=== PATIENT | male | born 1980 | race Caucasian/White ===

== ENCOUNTER → 2020-02-06 08:40 | Outpatient (CLI) | payer OTHER, SELFPAY ==
--- NOTE | 2020-02-06 08:42 | DI.MRI.S_ITS ---
PROCEDURE: MR SHOULDER LT WO CON INDICATIONS: Injury L shoulder TECHNIQUE: Noncontrast oblique coronal T2 fast spin echo with fat saturation, oblique sagittal T1 spin echo and T2 fast spin echo with fat saturation, axial T1 spin echo and T2 fast spin echo with fat saturation through the shoulder. COMPARISON: None. FINDINGS: Image quality: Excellent. Rotator cuff: There is high-grade partial thickness tear of the supraspinatus tendon along the articular surface. The infraspinatus and subscapularis tendons appear intact throughout. Sagittal images demonstrate no supraspinous muscle muscle atrophy. Bones and bursae: No bone marrow contusions or fractures. There is mtyb-[id number]-[id number] acromioclavicular joint degeneration. The acromion demonstrates conventional anatomy, without an os acromiale. There is subcoracoid bursal fluid consistent with bursitis. Capsule and soft tissues: In the absence of intra-articular contrast, the labrum and glenohumeral ligaments appear intact. The long head of the biceps tendon demonstrates normal location and morphology. The rotator interval appears normal, without fibrosis. The coracohumeral ligament is normal in thickness. IMPRESSION: 1. High-grade partial thickness tear of the supraspinatus tendon. 2. Zoql-qx-ikwxfphn acromioclavicular joint degeneration. 3. Subcoracoid bursal fluid consistent with bursitis. Dictated by: Holly Dick M.D. on 02/08/2020 at 10:41 Approved by: Holly Dick M.D. on 02/08/2020 at 11:24
== END ==
PROVIDERS: PCP Student in an Organized Health Care Education/Training Program; Referring Provider Student in an Organized Health Care Education/Training Program; Visit Provider Student in an Organized Health Care Education/Training Program
DX: S46.012A Strain of muscle(s) and tendon(s) of the rotator cuff of left shoulder, initial encounter (principal); M19.012 Primary osteoarthritis, left shoulder; X58.XXXA Exposure to other specified factors, initial encounter
CPT/HCPCS: 73221

== ENCOUNTER 2020-03-28 08:15 | Outpatient (RCR) | payer OTHER, SELFPAY ==
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
--- NOTE | 2020-02-29 18:01 | PT.OPPOC ---
Physical, Occupational & Speech Therapy At [facility] Current Diagnoses Primary osteoarthritis, unspecified shoulder (02/29/20) Cervicalgia (02/29/20) Unspecified rotator cuff tear or rupture of unspecified shoulder, not specified as traumatic (02/29/20) Bursitis of unspecified shoulder (02/29/20) Abnormal posture (02/29/20) Weakness (02/29/20) Visit Care Team Role Provider Type Harshad Gill MD Attending Provider Physician Primary Care Provider Referring Provider Specialty: Internal Medicine Address: [address] [place] [address], [address], [facility] Email: [email or web address] Plan Of Care PT-OP-T Assessment and Plan Start: 02/25/20 17:53 Freq: Status: Active Protocol: Document 02/29/20 08:13 [facility] (Rec: 02/29/20 10:42 [facility] [id number]) Physical Therapy Assessment Rehab Potential Rehabilitation Potential Good Evaluation Complexity Number of Personal Factors/Comorbidities 3 or More Number of Body Systems Impaired 4 or More Clinical Presentation at Evaluation Evolving Impairments Impairments Activity Tolerance,Functional Activities,Functional Mobility ,Pain,Posture,ROM,Soft Tissue Mobility,Strength Goals activities Short Term Goal (STG) Pt will be able to lift with good mechanics without cueing STG Duration 03/31/20 Heater Planer Operator Goal (LTG) Pt will be able to mountain bike, do paddle sports and play with kids without inc pain or change in ability to move UE. LTG Duration 04/30/20 ROM Heater Planer Operator Goal (LTG) Pt will improve cervical ROM 10 deg in all motions and not cause pain into shoulder tod ec pain when pt performs cervical mobility. LTG Duration 04/30/20 strength Short Term Goal (STG) Pt will be indep with HEP and be able to start gentle strengthening without inc pain STG Duration 03/31/20 Half-Way Goal (LTG) Pt will have 5/5 UE strength B & EFT to show imrpoved shoulder stability to dec instances of pain. LTG Duration 04/30/20 Assessment Summary Assessment Pt presents with L>R shoulder pain with B shoulder pain radiating into elbows and neck pain which typically radiates to his L shoulder. He has imaging showing partial tear of supraspinatus, AC joint degeneration and subcoracoid bursitis, which is likely affected by his scapular mechanics and forward rounded posture. His pain likely stems from his L shoulder injury, but also from his neck as neck motions increase his L shoulder pain. Pt would benefit from skilled PT to address these deficits and return him to his full active lifestyle without pain. Physical Therapy Plan Frequency and Duration Frequency of Treatment 2x/Week Duration of Treatment 2 months Plan of Care Start Date 02/29/20 Plan of Care End Date 04/30/20 Therapeutic Interventions Therapeutic Interventions Aquatic Therapy,Balance Training,Gait Training,Home Exercise Program,Joint Mobilizations,Manual Therapy, Neuromuscular Re-education, Patient/Caregiver Education, Self-Care/Home Management,Soft Tissue Mobilization,Taping, Therapeutic Activities, Therapeutic Exercises Modalities Cold Pack/Ice Massage,Electric Stimulation,Hot Packs, Infrared Therapy,Traction- Mechanical,Ultrasound Next Visit Focus/Plan Next Note Type Treatment Note Next Visit Plan scap stability exercises, look at running form for UEs, work on stretches for after running, manual treatmetn to pecs & UT Plan of Care Dates Plan of Care Start Date 02/29/20 Plan of Care End Date 04/30/20 Electronically Signed by: Lashay Nieves, PT 02/29/20 [id number] Please Sign and Return: I have reviewed this Plan of Care and certify that the skilled therapy services above are required to meet the patient?s needs. Physician Signature Date Printed Name and Credentials Clinical Instructor Signature Printed Name and Credentials
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
--- NOTE | 2020-03-28 09:15 | PT.OTN ---
Current Diagnoses Primary osteoarthritis, unspecified shoulder (03/28/20) Cervicalgia (03/28/20) Unspecified rotator cuff tear or rupture of unspecified shoulder, not specified as traumatic (03/28/20) Bursitis of unspecified shoulder (03/28/20) Abnormal posture (03/28/20) Weakness (03/28/20) Physical Therapy Treatment Note PT-OP-A Visit Information Start: 02/25/20 17:53 Freq: Status: Active Protocol: Document 03/28/20 08:19 SP (Rec: 03/28/20 11:56 SP [id number]) Out-Patient Physical Therapy Visit Information Visit Information Visit Type Treatment Note Visit Start Time 08:19 Visit Stop Time 09:15 Total Visit Minutes 56 Visit Number 3 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 He did some PT but moved to [place] so did not do full course. He returned in 2014 and did PT in [place] for neck & L shoulder. He had dry needling which helped. Rerpots lotso f stress which likely contributes. Pt reports he has been doing a lot of shovelling & movign pavers recently. Pt went mtn biking about 1 month ago and could barely move arm. Pt was also SUPing and after he couldn't move arm. It takes a few days for the extreme pain to go away. He wants to be able to lift weights. he has only been running now. Pt has pain in B UT into shoulders and elbows. Pt reports L shoulder pain and L elbow pain happen together. Pt did flip over his bike also in 2011 which hurt his back mostly Prior Treatments and Tests copied from MRI: 1. High-grade partial thickness tear of the supraspinatus tendon. 2. Gyie-jr-qigkiozr acromioclavicular joint degeneration. 3. Subcoracoid bursal fluid consistent with bursitis. Treatment Goals Patient/Caregiver Goals wants to be active with kids, be able to do lifting and inc strength without pain Personal Factors Other Personal Factors That May Effect LBP, neck pain, B shoulder Therapy/Recovery pain, B elbow pain PT-OP-C Subjective Start: 02/25/20 17:53 Freq: Status: Active Protocol: Document 03/28/20 08:19 SP (Rec: 03/28/20 11:56 SP [id number]) OP-PT Subjective Patient Comments Patient Comments Pt reports no pain today but neck was tender past couple of days and still has pain during shoveling over primarily L>R shld, reaching L OH, tingy feeling anterior and lateral humerous to forearm including elbow since last tx, was building sand box for kids. PT-OP-F Manual Assessment Start: 02/25/20 17:53 Freq: Status: Active Protocol: Document 02/29/20 08:13 [facility] (Rec: 02/29/20 10:42 [facility] [id number]) Manual Assessments Soft Tissue Assessment Soft Tissue Mobility Assessment UT, LS, scalenes, pecs L>R Joint Mobility Assessment Joint Mobility Assessment L 1st rib elevated PT-OP-J Posture/Palpation/Skin Start: 02/25/20 17:53 Freq: Status: Active Protocol: Document 02/29/20 08:13 [facility] (Rec: 02/29/20 10:42 [facility] [id number]) Posture Evaluation [facility] Postural Classification System Debbi Postural Classifications Posterior/Anterior Elbow Flexion Test 2 PT-OP-K Range of Motion Start: 02/25/20 17:53 Freq: Status: Active Protocol: Document 02/29/20 08:13 [facility] (Rec: 02/29/20 10:42 [facility] [id number]) Cervical Spine Range of Motion Cervical Spine Active Degrees Flexion 45 Extension 56 Rotation Left 33 Rotation Right 35 Lateral Flexion Left 58 Lateral Flexion Right 56 Comments flex & ext create pain into L shoulder region Shoulder Goniometric Range of Motion Shoulder Left Active Flexion 162 Extension 55 External Rotation at 90 degrees 100 Abduction Internal Rotation Behind Back (text) T6 Right Active Flexion 158 Extension 66 Abduction 160 External Rotation at 90 degrees 100 Abduction Internal Rotation Behind Back (text) T6 Shoulder ROM Limitations Comments pain at end range PT-OP-L Special Tests Start: 02/25/20 17:53 Freq: Status: Active Protocol: Document 02/29/20 08:13 [facility] (Rec: 02/29/20 10:42 [facility] [id number]) Special Tests Cervical Spine Special Tests Vertebrobasilar Test Results neg Spurling's Test Test Results neg Alar Ligament Test Results neg Neural Special Tests- Upper Body Radial Nerve Tension Test Results neg B Median Nerve Tension Test Results neg B Ulnar Nerve Tension Test Results neg B PT-OP-M Strength Start: 02/25/20 17:53 Freq: Status: Active Protocol: Document 02/29/20 08:13 [facility] (Rec: 02/29/20 10:42 [facility] [id number]) Shoulder Strength Shoulder Manual Muscle Testing Right Flexion 5 Normal Extension 5 Normal Abduction (C5) 5 Normal External Rotation 4+ Good+ Internal Rotation 4+ Good+ Left Flexion 4+ Good+ Extension 4+ Good+ Abduction (C5) 4+ Good+ External Rotation 4- Good- Internal Rotation 4 Good PT-OP-Q Treatments Start: 02/25/20 17:53 Freq: Status: Active Protocol: Document 03/28/20 08:19 SP (Rec: 03/28/20 11:56 SP [id number]) Therapeutic Exercises Supine Exercises TS ext, rolling Reps/Minutes 4 min Sidelying Exercises roll & reach Side bilateral Reps/Minutes 10 Standing Exercises HABD Side bilateral Resistance TB 3 Reps/Minutes x10 Comments cued scap depression during eccentric to decrease winging row Side bilateral Equipment Used L3 Reps/Minutes 2x15 Comments focus on posture & scap motion wall posture Standing Exercise Name reassess next tx pec stretch Standing Exercise Name supine over foam roller today Manual Therapy Treatment Soft Tissue Mobilization L brachioradialis, Brachialis Body Location and CET Mobilization Type Cross-Friction,Instrument Assisted,Strumming Intensity/Depth Moderate Body Position Supine Comments Instructed instrument assisted Joint Mobilizations L GH Jt AP, inf glide Direction AP Grade II Body Position Hooklying PT-OP-T Assessment and Plan Start: 02/25/20 17:53 Freq: Status: Active Protocol: Document 03/28/20 08:19 SP (Rec: 03/28/20 11:56 SP [id number]) Physical Therapy Assessment Goals activities Short Term Goal (STG) Pt will be able to lift with good mechanics without cueing STG Duration 03/31/20 Brake Reliner Goal (LTG) Pt will be able to mountain bike, do paddle sports and play with kids without inc pain or change in ability to move UE. LTG Duration 04/30/20 ROM Halfway Goal (LTG) Pt will improve cervical ROM 10 deg in all motions and not cause pain into shoulder tod ec pain when pt performs cervical mobility. LTG Duration 04/30/20 strength Short Term Goal (STG) Pt will be indep with HEP and be able to start gentle strengthening without inc pain STG Duration 03/31/20 Brake Reliner Goal (LTG) Pt will have 5/5 UE strength B & EFT to show imrpoved shoulder stability to dec instances of pain. LTG Duration 04/30/20 Assessment Summary Assessment Pt reported L elbow discomfort today due to building sand box for child since last tx and improved post manual STMs. Reviewed HEP given since last tx, no appts available since then. Max cuing for scap retraction/depression during eccentric HABD and rows, continue next tx, utilized mirror for self feedback. Pt's goals is to get back into some sort of UE strengthening/ lifting program. Responded well to introduction to foam roller, has 1/4 one at home but might get full length like used today. Physical Therapy Plan Frequency and Duration Frequency of Treatment 2x/Week Duration of Treatment 2 months Plan of Care Start Date 02/29/20 Plan of Care End Date 04/30/20 Therapeutic Interventions Therapeutic Interventions Aquatic Therapy,Balance Training,Gait Training,Home Exercise Program,Joint Mobilizations,Manual Therapy, Neuromuscular Re-education, Patient/Caregiver Education, Self-Care/Home Management,Soft Tissue Mobilization,Taping, Therapeutic Activities, Therapeutic Exercises Modalities Cold Pack/Ice Massage,Electric Stimulation,Hot Packs, Infrared Therapy,Traction- Mechanical,Ultrasound Next Visit Focus/Plan Next Note Type Treatment Note Next Visit Plan Assess respone to last tx: manual CET L elbow/forearm and GH Jt, Continue per PT POC: HEP review, work on manual treatment for more efficient shoulder movement & UT & [place]ec[place], UT stretch
--- NOTE | 2020-06-06 13:36 | PT.OPDS ---
Current Diagnoses Primary osteoarthritis, unspecified shoulder (03/28/20) Cervicalgia (03/28/20) Unspecified rotator cuff tear or rupture of unspecified shoulder, not specified as traumatic (03/28/20) Bursitis of unspecified shoulder (03/28/20) Abnormal posture (03/28/20) Weakness (03/28/20) Visit Care Team Role Provider Type Harshad Gill MD Attending Provider Physician Primary Care Provider Referring Provider Specialty: Internal Medicine Address: [address] [place] [address], [address], [facility] Email: [email or web address] Visit Number Visit Number 3 Discharge Summary PT-OP-T Assessment and Plan Start: 02/25/20 17:53 Freq: Status: Active Protocol: Document 06/06/20 13:34 [facility] (Rec: 06/06/20 13:36 [facility] [id number]) Physical Therapy Assessment Assessment Summary Assessment Pt not able to attend PT d/t inability to get childcare. Pt at this has not been seen since mid Mar, so DC at this time. Physical Therapy Plan Discharge Physical Therapy Discharge Reasons No Longer Attending PT
== END 2020-07-13 14:04 ==
LOC: PHYS 08:15
PROVIDERS: PCP Student in an Organized Health Care Education/Training Program; Referring Provider Student in an Organized Health Care Education/Training Program; Visit Provider Student in an Organized Health Care Education/Training Program
DX: M75.50 Bursitis of unspecified shoulder (principal); M19.019 Primary osteoarthritis, unspecified shoulder; M75.100 Unspecified rotator cuff tear or rupture of unspecified shoulder, not specified as traumatic; M54.2 Cervicalgia; R29.3 Abnormal posture; R53.1 Weakness
CPT/HCPCS: 97110; 97116; 97140; 97162; 97535

== ENCOUNTER → 2020-05-12 17:17 | Outpatient (CLI) | payer OTHER, SELFPAY ==
[2020-05-12 18:01] LABS: Hematocrit 39.3 % (41-53); Hemoglobin 13.5 g/dL (13.5-17.5); Mean Corpuscular HGB Conc 34.3 % (30-36); Mean Corpuscular Hemoglobin 31.2 PG (26-34); Platelet Count 162 X10^3/uL (150-400); Red Blood Cell Count 4.32 X10^6/uL (4.5-5.9); Red Cell Distribution Width 12.2 % (11.6-14.8); White Blood Cell Count 6.9 X10^3/uL (4.5-11.0)
[2020-05-12 18:21] LABS: Alanine Aminotransferase 21 IU/L (<50); Albumin 4.4 g/dL (3.5-5.0); Albumin Globulin Ratio 1.2 (1.0-2.8); Alkaline Phosphatase 49 U/L (38-126); Aspartate Aminotransferase 36 IU/L (17-59); BUN Creatinine Ratio 31.9 (6-22); Bilirubin Total 0.4 mg/dL (0.2-1.3); Blood Urea Nitrogen 23 mg/dL (9-20); Calcium 8.9 mg/dL (8.4-10.2); Carbon Dioxide 29 mmol/L (22-32); Chloride 104 mmol/L (98-107); Cholesterol 150 mg/dL (140-199); Estimated Glomerular Filt Rate > 60.0 mL/min (>60); Globulin 3.7 g/dL (1.7-4.1); Glucose 91 mg/dL (70-100); HDL Cholesterol 42 mg/dL (40-60); HEMOLYSIS 44 (0-50); LDL Cholesterol Calculated 80 mg/dL (<100); Sodium 139 mmol/L (137-145); Total Protein 8.1 g/dL (6.3-8.2); Triglycerides 141 mg/dL (35-150)
[2020-05-12 18:37] LABS: Vitamin D 25 Hydroxy (D3) 30.6 ng/mL (30.0-100.0)
== END ==
PROVIDERS: PCP Student in an Organized Health Care Education/Training Program; Referring Provider Student in an Organized Health Care Education/Training Program; Visit Provider Student in an Organized Health Care Education/Training Program
DX: F10.20 Alcohol dependence, uncomplicated (principal); F32.5 Major depressive disorder, single episode, in full remission; M19.019 Primary osteoarthritis, unspecified shoulder; E55.9 Vitamin D deficiency, unspecified; Z13.220 Encounter for screening for lipoid disorders
CPT/HCPCS: 36415; 80053; 80061; 82306; 85027

== ENCOUNTER → 2021-02-27 13:30 | Outpatient (CLI) | payer OTHER, SELFPAY ==
--- NOTE | 2021-02-27 13:31 | DI.RAD.S_ITS ---
PROCEDURE: XR CHEST 2V INDICATIONS: Pain on right upper chest TECHNIQUE: 2 views of the chest were acquired. COMPARISON: None. FINDINGS: Surgical changes and devices: None. Lungs and pleura: Lungs are clear. No pleural effusions or pneumothorax. Mediastinum: Mediastinal contours are normal. Heart size is normal. Bones and chest wall: No suspicious bony abnormalities. Soft tissues appear unremarkable. IMPRESSION: No acute cardiopulmonary disease. Dictated by: Spencer Reyes RR Interpreted: Luis Alfredo Woo MD on 02/27/2021 at 13:52 Transcribed by: JE on 02/27/2021 at 13:53 Approved by: Luis Alfredo Woo M.D. on 02/27/2021 at 16:37
== END ==
PROVIDERS: PCP Student in an Organized Health Care Education/Training Program; Referring Provider Student in an Organized Health Care Education/Training Program; Visit Provider Student in an Organized Health Care Education/Training Program
DX: R07.89 Other chest pain (principal)
CPT/HCPCS: 71046

== ENCOUNTER → 2022-03-09 16:11 | Outpatient (CLI) | payer OTHER, SELFPAY ==
--- NOTE | 2022-03-09 16:12 | DI.US.S_ITS ---
PROCEDURE: US RENAL COMPLETE INDICATIONS: Retention of urine, unspecified TECHNIQUE: Real-time scanning was performed of the kidneys and bladder, with image documentation. COMPARISON: None. FINDINGS: Kidneys: Kidneys are normal in size. Right kidney measures 10.4 cm long; left kidney measures 11.4 cm long. Right renal cortical thickness is 1.6 cm; left renal cortical thickness is 1.1 cm. Renal cortical echotexture is normal. No hydronephrosis or nephrolithiasis. No suspicious solid mass lesions. Bladder: Pre-void bladder volume is 100 mL. Post-void residual is for mL. Pre-void images demonstrate no intraluminal masses or stones. On pre-void images, bilateral ureteral jets are noted with color Doppler interrogation. (Of note, ureteral jets may not be detectable in up to 25% of cases due to insufficient differences in specific gravity between ureteral and bladder urine). Miscellaneous: No free pelvic fluid. IMPRESSION: Normal appearance of the kidneys bilaterally. Dictated by: Spencer Reyes Stephanie Interpreted: Jose Alfredo Gaffney MD on 03/12/2022 at 13:05 Transcribed by: KATELYN on 03/12/2022 at 13:06 Approved by: Jose Alfredo Gaffney M.D. on 03/12/2022 at 14:51
== END ==
PROVIDERS: PCP Student in an Organized Health Care Education/Training Program; Referring Provider Student in an Organized Health Care Education/Training Program; Visit Provider Student in an Organized Health Care Education/Training Program
DX: R33.9 Retention of urine, unspecified (principal)
CPT/HCPCS: 76770

== ENCOUNTER → 2023-01-07 11:14 | Outpatient (CLI) | payer OTHER, SELFPAY ==
[2023-01-07 13:01] LABS: Hematocrit 40.4 % (41-53); Hemoglobin 13.9 g/dL (13.5-17.5); Mean Corpuscular HGB Conc 34.4 % (30-36); Mean Corpuscular Hemoglobin 31.3 PG (26-34); Mean Corpuscular Volume 90.9 fL (80-100); Platelet Count 179 X10^3/uL (150-400); Red Blood Cell Count 4.45 X10^6/uL (4.5-5.9); Red Cell Distribution Width 12.3 % (11.6-14.8); White Blood Cell Count 6.1 X10^3/uL (4.5-11.0)
[2023-01-07 13:15] LABS: Alanine Aminotransferase 26 IU/L (<50); Albumin 4.5 g/dL (3.5-5.0); Albumin Globulin Ratio 1.2 (1.0-2.8); Alkaline Phosphatase 50 U/L (38-126); Aspartate Aminotransferase 34 IU/L (17-59); BUN Creatinine Ratio 17.4 (6-22); Bilirubin Total 0.7 mg/dL (0.2-1.3); Blood Urea Nitrogen 12 mg/dL (9-20); Calcium 9.3 mg/dL (8.4-10.2); Carbon Dioxide 29 mmol/L (22-32); Chloride 103 mmol/L (98-107); Cholesterol 168 mg/dL (140-199); Estimated Glomerular Filt Rate > 60 mL/min (>60); Globulin 3.7 g/dL (1.7-4.1); Glucose 86 mg/dL (70-100); HDL Cholesterol 56 mg/dL (40-60); HEMOLYSIS < 15 (0-50); LDL Cholesterol Calculated 92 mg/dL (<100); Potassium 4.2 mmol/L (3.4-5.1); Sodium 139 mmol/L (137-145); Total Protein 8.2 g/dL (6.3-8.2); Triglycerides 100 mg/dL (35-150)
[2023-01-07 13:47] LABS: TSH w/ Reflex to FT4 1.27 uIU/mL (0.47-4.68)
== END ==
PROVIDERS: PCP Internal Medicine; Referring Provider Internal Medicine; Visit Provider Internal Medicine
DX: N40.1 Benign prostatic hyperplasia with lower urinary tract symptoms (principal); N13.8 Other obstructive and reflux uropathy; R53.83 Other fatigue
CPT/HCPCS: 36415; 80053; 80061; 84153; 84443; 85027

== ENCOUNTER → 2025-04-27 14:24 | Outpatient (CLI) | payer OTHER, SELFPAY ==
[2025-04-27 14:55] LABS: Hematocrit 40.1 % (41-53); Hemoglobin 13.8 g/dL (13.5-17.5); Mean Corpuscular HGB Conc 34.5 % (30-36); Mean Corpuscular Hemoglobin 31.6 PG (26-34); Mean Corpuscular Volume 91.6 fL (80-100); Platelet Count 189 X10^3/uL (150-400)
[2025-04-27 15:10] LABS: Alanine Aminotransferase 19 IU/L (<50); Albumin 4.5 g/dL (3.5-5.0); Albumin Globulin Ratio 1.3 (1.0-2.8); Alkaline Phosphatase 60 U/L (38-126); Blood Urea Nitrogen 16 mg/dL (9-20); Calcium 9.0 mg/dL (8.4-10.2); Carbon Dioxide 28 mmol/L (22-32); Chloride 105 mmol/L (98-107); Cholesterol 151 mg/dL (140-199); Estimated Glomerular Filt Rate > 60 mL/min (>60); Globulin 3.6 g/dL (1.7-4.1); Glucose 77 mg/dL (70-99); HDL Cholesterol 55 mg/dL (40-60); HEMOLYSIS 22 (0-50); Potassium 4.4 mmol/L (3.4-5.1); Sodium 141 mmol/L (137-145); Total Protein 8.1 g/dL (6.3-8.2); Triglycerides 264 mg/dL (35-150)
[2025-04-27 15:40] LABS: TSH w/ Reflex to FT4 1.27 uIU/mL (0.47-4.68)
== END ==
PROVIDERS: PCP Internal Medicine; Referring Provider Internal Medicine; Visit Provider Internal Medicine
DX: Z00.00 Encounter for general adult medical examination without abnormal findings (principal); Z12.5 Encounter for screening for malignant neoplasm of prostate; R19.7 Diarrhea, unspecified
CPT/HCPCS: 36415; 80053; 80061; 84443; 85027; G0103

== ENCOUNTER 2025-05-19 10:26 | Day surgery (SDC) | payer OTHER, SELFPAY ==
[2025-05-19 11:14] VITALS: BP 118/70; PULSE 62; RESP 16; TEMP 37.1; O2SAT 99
[2025-05-19] MEDS: LACTATED RINGERS 1,000 ML 42 ML IV (11:22)
--- NOTE | 2025-05-19 11:27 | P.HP_ITS ---
History of Present Illness
--- NOTE | 2025-05-19 11:27 | PM.HP.IH.1 ---
History of Present Illness History of Present Illness Date Patient Seen: 05/19/25 Chief complaint: LAC Narrative: Screening colonoscopy last 15 years ago [facility] Medical History Acne (~1999) Allergic rhinitis Chronic back pain (~1995) Generalized anxiety disorder Herpes (~2005) Human papilloma virus (~2005) Numerous moles (~1999) RBBB (right bundle branch block) (~2014) Surgical History Anesthesia History of sinus surgery (~2004) History of tonsillectomy Family History Father Hypertension Hyperlipidemia Mother Hypertension Mental health problem Family/Other Mental health problem Grandmother Stroke Social History details: , 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, 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 Smoking Status: Former smoker alcohol intake: current Meds Home Medications and Allergies Home Medications ?Medication ?Instructions ?Recorded ?Confirmed ?Type fluticasone propionate 50 1 spray intranasal .PRN 05/12/20 05/19/25 History mcg/actuation nasal spray,suspension (Flonase Allergy Relief) fexofenadine 180 mg tablet 180 mg PO DAILY allergy 01/07/23 05/19/25 History (Elayne Allergy) Vit C, Vit D and probiotic 1 tab PO DAILY 04/27/25 05/19/25 History azelastine 0.05 % eye drops 1 drp ophthalmic (eye) BID PRN 04/27/25 05/19/25 History itching escitalopram oxalate 10 mg tablet 10 mg PO DAILY #90 tabs 04/27/25 05/19/25 Rx multivitamin [Daily Multi-Vitamin] 1 tab PO DAILY 04/27/25 05/19/25 History peg 3350-electrolytes 236 240 ml PO Q10M #4,000 mL 05/17/25 05/19/25 Rx gram-22.74 gram-6.74 gram-5.86 gram solution (Golytely) Allergies Allergy/AdvReac Type Severity Reaction Status Date / Time Sulfa (Sulfonamide Allergy Mild Verified 05/19/25 11:11 Antibiotics) Exam Vital Signs (past 8 hours): - 05/19/25 11:14 Temperature 98.7 F Pulse Rate 62 Respiratory Rate 16 Blood Pressure 118/70 Pulse Oximetry 99 Oxygen Delivery Method Room Air Oxygen Delivery Method Room Air Narrative Exam Narrative: Oropharynx free of lesions Chest clear to auscultation percussion Cardiac exam reveals no S3 or murmur Assessment & Plan Assessment & Plan narrative: Need for screening colonoscopy. Risks, benefits, alternatives been explained. Time-Based Coding :: [TOTAL MINUTES] spent with patient and on the chart (including review of chart, obtaining history, exam, reviewing outside data, placing orders, documenting exam and treatment plan, and counseling patient) on [DATE]. 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
--- NOTE | 2025-05-19 11:47 | P.OP.COLON_ITS ---
Operative Date/Time/Diagnoses
--- NOTE | 2025-05-19 11:47 | PM.OP.COLON ---
Operative Date/Time/Diagnoses Date of procedure: 05/19/25 Time of procedure: 12:13 Pre-op diagnosis: Need for colorectal cancer screening Post-op diagnosis: same Procedure & Clinicians Study performed: Screening colonoscopy Same procedure(s) as scheduled: Yes Indications: Colorectal cancer screening Surgeon: Milton Roque Anesthesia Type: Other Procedure Notes Procedure in detail: After informed consent was obtained the patient was placed in left lateral decubitus position. The video colonoscope was placed in the rectum slowly advanced cecum. Preparation was good. On slow withdrawal mucosa was carefully evaluated. The scope was removed. Tolerated procedure well. Blood loss none Complications none Findings 1. Left-sided diverticulosis 2. Otherwise negative colonoscopy to cecum Patient should have follow-up colonoscopy in 10 years. Estimated Blood Loss: 0 Complications: none
[2025-05-19 12:15] VITALS: BP 108/55; PULSE 64; RESP 14; TEMP 36.3; O2SAT 99
[2025-05-19 12:19] VITALS: BP 96/55; PULSE 62; RESP 19; O2SAT 98
[2025-05-19 12:25] VITALS: BP 103/53; PULSE 63; RESP 18; O2SAT 99
[2025-05-19 12:35] VITALS: BP 119/75; PULSE 65; RESP 13; O2SAT 100
== END 2025-05-19 12:46 | disposition home or self-care (01) ==
PROVIDERS: PCP Internal Medicine; Referring Provider Internal Medicine Gastroenterology; Visit Provider Internal Medicine Gastroenterology
PROC: 0DJD8ZZ Inspection of Lower Intestinal Tract, Via Natural or Artificial Opening Endoscopic (ICD-10-PCS; CPT 45378; principal; 2025-05-19 11:30)
DX: Z12.11 Encounter for screening for malignant neoplasm of colon (principal); K57.30 Diverticulosis of large intestine without perforation or abscess without bleeding
CPT/HCPCS: 45378; J2704; J7120